=== PATIENT | male | born 1980 | race Two or more races ===

== ENCOUNTER 2019-11-14 10:39 | Emergency (ER) | payer SELFPAY ==
[2019-11-14] MEDS ORDERED: KETOROLAC TROMETHAMINE INJ/PF 30 MG/1 ML SDV IV ONE ×2 (11:42→14:13)
[2019-11-14] MEDS ORDERED: NORMAL SALINE 1000 ML 1,000 ML IV ONE (11:43)
--- NOTE | 2019-11-14 11:46 | ER Document Report ---
ED Medical Screen (RME) - General Chief Complaint: Flank Pain Stated Complaint: RIGHT FLANK PAIN Time Seen by Provider: 11/14/19 11:39 Mode of Arrival: Ambulatory Information source: Patient Notes: Otherwise healthy 38-year-old male presenting to the emergency department chief complaint of right flank pain. Patient reports ongoing for the last 3 days, denies any radiation to his abdomen, denies any obvious blood in his urine. Denies history of kidney stones. States the pain is severe. Abdomen soft, nontender, no guarding no rebound. I have greeted and performed a rapid initial assessment of this patient. A comprehensive ED assessment and evaluation of the patient, analysis of test results and completion of the medical decision making process will be conducted by additional ED providers. I have specifically instructed the patient or family members with the patient to immediately return to any nursing staff should anything change in the patient's condition or with their chief complaint. - Related Data Allergies/Adverse Reactions: No Known Allergies Allergy (Unverified 11/14/19 11:36) Past Medical History - Social History Chew tobacco use (# tins/day): No Frequency of alcohol use: Occasional Drug Abuse: None Physical Exam - Vital signs Vitals: Temp Pulse Resp BP Pulse Ox 97.9 F 79 18 131/81 H 99 11/14/19 10:41 11/14/19 10:41 11/14/19 10:41 11/14/19 10:41 11/14/19 10:41 Course - Vital Signs Vital signs: Temp Pulse Resp BP Pulse Ox 97.9 F 79 18 131/81 H 99 11/14/19 10:41 11/14/19 10:41 11/14/19 10:41 11/14/19 10:41 11/14/19 10:41
[2019-11-14 12:24] LABS: APPEARANCE,URINE CLEAR; BILIRUBIN,URINE NEGATIVE (NEGATIVE); COLOR,URINE STRAW; GLUCOSE, URINE NEGATIVE (NEGATIVE); KETONES,URINE NEGATIVE (NEGATIVE); PROTEIN,URINE NEGATIVE (NEGATIVE); URINE SPECIFIC GRAVITY 1.008; UROBILINOGEN,URINE NEGATIVE mg/dL (<2.0)
--- NOTE | 2019-11-14 12:31 | ER Document Report ---
ED GI/ - General Chief Complaint: Flank Pain Stated Complaint: RIGHT FLANK PAIN Time Seen by Provider: 11/14/19 11:39 Primary Care Provider: [facility] [Provider Group] - Follow up as needed [facility] [Provider Group] - Follow up as needed Mode of Arrival: Ambulatory Notes: Patient is a 38-year-old male who presents the emergency department with a chief complaint of right flank pain. Patient reports waking up yesterday with right flank pain that has gradually intensified. Patient reports a long time ago that this has happened but did resolve on its own. Patient reports this is nonradiating. Patient reports his last bowel movement was today and normal for him. Patient denies trouble urinating or blood in the urine. Patient reports that the right flank pain feels like a constant squeezing. He states that it is slightly better when he extends his right leg. He denies nausea, vomiting or diarrhea. Patient denies any recent heavy lifting, injury or fall. Patient reports he does not have a history of kidney stones but that his parents do have a history of stones. Patient reports he believes that the issue is his kidney. - Related Data Allergies/Adverse Reactions: No Known Allergies Allergy (Unverified 11/14/19 11:36) Past Medical History - General Information source: Patient - Social History Smoking Status: Current Every Day Smoker Chew tobacco use (# tins/day): No Frequency of alcohol use: Occasional Drug Abuse: None Lives with: Family Family History: None Patient has suicidal ideation: No Patient has homicidal ideation: No - Past Medical History Cardiac Medical History: Reports: None Pulmonary Medical History: Reports: None EENT Medical History: Reports: None Neurological Medical History: Reports: None Endocrine Medical History: Reports: None Renal/ Medical History: Reports: None Malignancy Medical History: Reports None GI Medical History: Reports: None Musculoskeletal Medical History: Reports None Skin Medical History: Reports None Psychiatric Medical History: Reports: None Traumatic Medical History: Reports: None Infectious Medical History: Reports: None Surgical Hx: Negative Review of Systems - Review of Systems Constitutional: No symptoms reported EENT: No symptoms reported Cardiovascular: No symptoms reported Respiratory: No symptoms reported Gastrointestinal: No symptoms reported Genitourinary: No symptoms reported Male Genitourinary: No symptoms reported Musculoskeletal: See HPI Skin: No symptoms reported Hematologic/Lymphatic: No symptoms reported Neurological/Psychological: No symptoms reported Physical Exam - Vital signs Vitals: Temp Pulse Resp BP Pulse Ox 97.9 F 79 18 131/81 H 99 11/14/19 10:41 11/14/19 10:41 11/14/19 10:41 11/14/19 10:41 11/14/19 10:41 Interpretation: Normal - Notes Notes: GENERAL: Well-appearing, well-nourished and in no acute distress. HEAD: Atraumatic, normocephalic. EYES: Pupils equal round and reactive to light, extraocular movements intact, sclera anicteric, conjunctiva are normal. ENT: Nares patent, oropharynx clear without exudates. Moist mucous membranes. NECK: Normal range of motion, supple without lymphadenopathy or JVD. LUNGS: Breath sounds clear to auscultation bilaterally and equal. No wheezes rales or rhonchi. HEART: Regular rate and rhythm without murmurs, rubs or gallops. ABDOMEN: Soft, nontender, normoactive bowel sounds. No guarding, no rebound. No masses appreciated. BACK: No cervical, thoracic, lumbar midline tenderness. No saddle anesthesia, normal distal neurovascular exam. No CVA tenderness. GENITOURINARY: Deferred. EXTREMITIES: Normal range of motion, no pitting or edema. No clubbing or cyanosis. NEUROLOGICAL: Cranial nerves II through XII grossly intact. Normal speech, normal gait. PSYCH: Normal mood, normal affect. SKIN: Warm, Dry, normal turgor, no rashes or lesions noted. Course - Re-evaluation Re-evalutation: 11/14/19 12:28 Upon initial examination patient is resting comfortably on stretcher no acute distress. Patient nontoxic-appearing. IV fluids and medication given as ordered by triage provider. Will obtain basic lab work, urinalysis is pending. 11/14/19 14:[address] is unremarkable without any acute abnormality, blood work and urinalysis unremarkable. Upon reevaluation patient is resting on stretcher. Patient does have a warm pack to his right lower back. Patient reports right lower back pain. There is tenderness to the right lumbar muscles with palpation. There is no obvious edema, ecchymosis or erythema to the area. I did inform the patient that this could be musculoskeletal in nature but was given strict return precautions to include the development of abdominal pain, inability or difficulty urinating, fever or any new or worsening symptoms. I will give the patient an anti-inflammatory medication to go home with and have instructed him to rest. 11/14/19 14:18 Patient reports that his right lower back feels like a tight sensation. He states it feels like a muscle spasm. We will give the patient another dose of Toradol as he only received 15 mg IV, as well as a Flexeril and a Lidoderm patch. Patient reports that he is not driving and that his customer dropped him off here in the emergency department. I did inform him that if he receives the Flexeril do not drive or operate heavy machinery for at least 6 hours as this can make him drowsy. 11/14/19 14:38 At time of discharge patient was not tachycardic, hypotensive or febrile. Pt. stable for discharge. - Vital Signs Vital signs: Temp Pulse Resp BP Pulse Ox 98.1 F 72 18 122/77 99 11/14/19 14:31 11/14/19 14:31 11/14/19 10:41 11/14/19 14:31 11/14/19 14:31 - Laboratory Result Diagrams: 11/14/19 12:28 11/14/19 12:28 Laboratory results interpreted by me: 11/14/19 11/14/19 11:53 12:28 RDW 14.4 H Urine Blood MODERATE H Patient blood work does not show significant leukocytosis, anemia, alteration electrolytes or kidney function. Patient's liver enzymes are within normal range. Patient's urinalysis did not show signs of infection and was negative for leukocytes, nitrites and WBCs. Patient's urine did show moderate amount of blood with only 3 RBCs noted. Laboratory 11/14/19 11/14/19 11/14/19 11:53 12:28 12:28 WBC 5.0 RBC 4.88 Hgb 14.5 Hct 42.5 MCV 87 MCH 29.8 MCHC 34.2 RDW 14.4 H Plt Count 208 Lymph % (Auto) 30.8 [place] % (Auto) 9.8 Eos % (Auto) 1.5 Baso % (Auto) 0.5 Absolute Neuts (auto) 2.8 Absolute Lymphs (auto) 1.5 Absolute Monos (auto) 0.5 Absolute Eos (auto) 0.1 Absolute Basos (auto) 0.0 Seg Neutrophils % 57.4 Sodium 138.1 Potassium 4.5 Chloride 102 Carbon Dioxide 30 Anion Gap 6 BUN 14 Creatinine 0.56 Est GFR ( Amer) > 60 Est GFR (MDRD) Non-Af > 60 Glucose 83 Calcium 9.1 Total Bilirubin 0.5 Direct Bilirubin 0.0 Neonat Total Bilirubin Not Reportable Neonat Direct Bilirubin Not Reportable Neonat Indirect Bili Not Reportable AST 33 ALT 38 Alkaline Phosphatase 63 Total Protein 7.2 Albumin 4.1 Urine Color STRAW Urine Appearance CLEAR Urine pH 6.0 Ur Specific [place] 1.008 Urine Protein NEGATIVE Urine Glucose (UA) NEGATIVE Urine Ketones NEGATIVE Urine Blood MODERATE H Urine Nitrite (Reflex) NEGATIVE Urine Bilirubin NEGATIVE Urine Urobilinogen NEGATIVE Leukocyte Esterase Rfl NEGATIVE Urine RBC (Auto) 3 Urine WBC (Reflex) < 1 Urine Mucus (Auto) RARE Urine Ascorbic Acid NEGATIVE 11/14/19 13:30 - Diagnostic Test Radiology reviewed: Reports reviewed Radiology results interpreted by me: 11/14/19 14:09 Abdomen/Pelvis CT 11/14/19 12:37 IMPRESSION: NO SIGNIFICANT OR ACUTE PROCESS IN THE ABDOMEN OR PELVIS. Discharge - Discharge Clinical Impression: Low back pain Qualifiers: Chronicity: acute Back pain laterality: right Sciatica presence: without sciatica Qualified Code(s): M54.5 - Low back pain Condition: Stable Disposition: HOME, SELF-CARE Additional Instructions: Today was seen in the emergency department for right flank pain and right lower back pain. We did obtain blood work, urinalysis and a CT of the abdomen which did not show any acute abnormality with your kidneys such as a kidney stone as this is what you were concerned about. I did visualize the appendix which did not show any abnormality. Your symptoms could be due to a muscle strain or spasm. You do not show signs of infection within the blood work or urinalysis. Please rest, continue to use warm packs, and take the anti-inflammatory as prescribed. Please return to the emergency department if you develop a spreading or radiation of pain or pain that becomes more severe, pain that does not resolve with time, fever, pain or numbness or tingling down the leg. If you develop any of the symptoms please return to the emergency department immediately for reevaluation. The medication that I am prescribing you is called naproxen. This is an anti-inflammatory. Please make sure you are eating food with this medication as it can cause gastric upset. Flank Pain We weren't able to prove an exact cause for your flank pain. Pain in the flank can be caused by a muscle strain or spasm. Sometimes a kidney stone causes pain, but can't be found on our tests. Infection in the kidney should be evident on a urine test. Early shingles can occasionally cause flank pain, without the rash that proves the diagnosis. On rare occasions, disease of the pancreas, aorta, spleen, or colon can create pain in the flank. At this time, there's no evidence of a dangerous condition, and it seems safe for you to be at home. If the pain goes away and does not come back, no further testing will be needed. If pain persists, or becomes more severe, we may need to repeat some tests or order additional new testing. Blood in the urine, urgency to urinate frequently, and pain that radiates to the groin can indicate a kidney stone. Fever may mean that the pain is due to infection, either of the kidney or the colon (diverticulitis). If your pain is early shingles, you should develop an eruption of blisters in the painful area within a few days. Call the doctor or return if you have pain that is spreading or becoming more severe, pain that does not resolve with time, fever, or any other new symptoms. Low Back Pain Three out of every four people will have an episode of disabling back pain during their lifetime. Most commonly the pain is due to straining of the muscles and ligaments in the low back. Usual treatment includes: (1) Rest on a firm surface. Avoid lying on your stomach. (2) Ice pack the painful area. After a few days, gentle heat may be used inte rmittently to relax the area, or ice packs can be continued. (3) Medication may be needed -- muscle relaxers and antiinflammatory medicines are commonly used. (4) As the back improves, exercises are prescribed to strengthen the back and abdominal muscles. Your doctor will advise you on the proper care for your back at each stage in your recovery. You may be better in a few days -- or healing may take several weeks. If new symptoms of a "herniated disc" (radiation of pain, numbness, or tingling down the back of the leg or weakness in the leg) occur, you should be re-examined. Further testing may be necessary. Prescriptions: Naproxen 500 mg PO BID PRN #14 tablet PRN Reason: For Pain Referrals: [facility] [Provider Group] - Follow up as needed [facility] [Provider Group] - Follow up as needed
[2019-11-14 12:36] LABS: ABSOLUTE EOSINOPHILS # (AUTO) 0.1 10^3/uL (0.0-0.6); ABSOLUTE LYMPHOCYTES (AUTO) 1.5 10^3/uL (0.5-4.7); ABSOLUTE MONOCYTES (AUTO) 0.5 10^3/uL (0.1-1.4); ABSOLUTE NEUT (AUTO) 2.8 10^3/uL (1.7-8.2); BASOPHILS % (AUTO) 0.5 % (0-2); EOSINOPHILS % (AUTO) 1.5 % (0-6); HEMATOCRIT 42.5 % (37.9-51.0); HEMOGLOBIN 14.5 g/dL (13.5-17.0); LYMPHOCYTES % (AUTO) 30.8 % (13-45); MEAN CORPUSCULAR HEMOGLOBIN 29.8 pg (27.0-33.4); MEAN CORPUSCULAR HGB CONC 34.2 g/dL (32.0-36.0); MEAN CORPUSCULAR VOLUME 87 fl (80-97); MONOCYTES % (AUTO) 9.8 % (3-13); PLATELET COUNT 208 10^3/uL (150-450); RED BLOOD COUNT 4.88 10^6/uL (4.35-5.55); RED CELL DISTRIBUTION WIDTH 14.4 % (11.5-14.0); SEGMENTED NEUTROPHILS % (AUTO) 57.4 % (42-78); TOTAL CELLS COUNTED % (AUTO) 100 %
[2019-11-14 12:53] LABS: ALBUMIN 4.1 g/dL (3.5-5.0); ALKALINE PHOSPHATASE 63 U/L (38-126); ANION GAP 6 (5-19); ASPARTATE AMINO TRANSFERASE 33 U/L (17-59); BILIRUBIN,TOTAL 0.5 mg/dL (0.2-1.3); BLOOD UREA NITROGEN 14 mg/dL (7-20); CALCIUM 9.1 mg/dL (8.4-10.2); CARBON DIOXIDE 30 mmol/L (22-30); CHLORIDE 102 mmol/L (98-107); GLUCOSE 83 mg/dL (75-110); POTASSIUM 4.5 mmol/L (3.6-5.0); TOTAL PROTEIN 7.2 g/dL (6.3-8.2)
--- NOTE | 2019-11-14 13:38 | RADIOLOGY REPORT (SQ) ---
EXAM DESCRIPTION: CT ABD/PELVIS NO ORAL OR IV COMPLETED DATE/TIME: 11/14/2019 1:22 pm REASON FOR STUDY: Right flank pain, rule out stone COMPARISON: None. TECHNIQUE: CT scan of the abdomen and pelvis performed without intravenous or oral contrast. Images reviewed with lung, soft tissue, and bone windows. Reconstructed coronal and sagittal MPR images revi ewed. All images stored on PACS. All CT scanners at this facility use dose modulation, iterative reconstruction, and/or weight based d osing when appropriate to reduce radiation dose to as low as reasonably achievable (ALARA). [facility]: Dose Right [facility]: CareDose [facility]: Dose Right [facility]: Teradose 4D [facility]: Smart PayEase RADIATION DOSE: CT Rad equipment meets quality standard of care and radiation dose reduction techniq ues were employed. CTDIvol: 5.3 mGy. DLP: 299 mGy-cm.mGy. LIMITATIONS: Motion. FINDINGS: LOWER CHEST: No significant findings. No nodules or infiltrates. NON-CONTRASTED LIVER, SPLEEN, ADRENALS: Evaluation limited by lack of IV contrast. No identified sign ificant masses. PANCREAS: No masses. No peripancreatic inflammatory changes. GALLBLADDER: No identified stones by CT criteria. No inflammatory changes to suggest cholecystitis. RIGHT KIDNEY AND URETER: No suspicious masses. Assessment limited by lack of IV contrast. No signif icant calcifications. No hydronephrosis or hydroureter. LEFT KIDNEY AND URETER: No suspicious masses. Assessment limited by lack of IV contrast. No signifi cant calcifications. No hydronephrosis or hydroureter. AORTA AND RETROPERITONEUM: No aneurysm. No retroperitoneal masses or adenopathy. BOWEL AND PERITONEAL CAVITY: No obvious masses or inflammatory changes. No free fluid. APPENDIX: Normal. PELVIS, BLADDER, AND ABDOMINAL WALL:No abnormal masses. No free fluid. Bladder normal. BONES: No significant findings. OTHER: No other significant finding. IMPRESSION: NO SIGNIFICANT OR ACUTE PROCESS IN THE ABDOMEN OR PELVIS. COMMENT: Quality ID # [id number]: Final reports with documentation of one or more dose reduction techniques (e.g., Automated exposure control, adjustment of the mA and/or kV according to patient size, use of iterative reconstruction technique) TECHNICAL DOCUMENTATION: JOB ID: [id number] [email or web address]- All Rights Reserved Reading location - IP/workstation name: [email or web address]
[2019-11-14] MEDS ORDERED: LIDOCAINE 5% (700 MG) TRANSDERMAL ADH..PATCH TP ONE (14:18)
[2019-11-14] MEDS ORDERED: CYCLOBENZAPRINE HCL 10 MG TABLET PO ONE (14:18)
[2019-11-14 14:33] VITALS: BP 122/77
== END 2019-11-14 14:37 | disposition home or self-care (01) ==
LOC: ER 10:39
DX: M54.5 Low back pain (principal); R10.9 Unspecified abdominal pain; F17.200 Nicotine dependence, unspecified, uncomplicated
CPT/HCPCS: 96376; 99284; 96361; 96374; 36415; 85025; 80053; 81001; 74176; J1885; J7030